=== PATIENT | female | born 1960 | race Two or more races ===

== ENCOUNTER → 2017-12-08 | Outpatient (CLI) | payer OTHER | END | disposition home or self-care (01) | LOC: RAD 11:00 | DX: M25.511 Pain in right shoulder (principal) ==

== ENCOUNTER 2018-06-27 13:37 | Emergency (ER) | payer OTHER ==
[~2018-06-27] VITALS: Ht 160 cm; Wt 66.7 kg
[2018-06-27] MEDS ORDERED: EXFORGE HCT 5-1 EAC1 (14:11)
== END 2018-06-27 17:27 | disposition home or self-care (01) ==
LOC: ER 13:37
DX: N39.0 Urinary tract infection, site not specified (principal); R10.12 Left upper quadrant pain

== ENCOUNTER 2018-07-01 08:31 | Outpatient (CLI) | payer OTHER ==
[~2018-07-01 08:31] MED LIST: EXFORGE HCT 5-1 EAC1
== END 2018-07-01 08:34 | disposition home or self-care (01) ==
LOC: SONOGRAMA 08:31 → MAMO-SONO 08:45
DX: R10.9 Unspecified abdominal pain (principal)

== ENCOUNTER 2019-01-26 07:55 | Outpatient (CLI) | payer OTHER | END 2019-01-26 08:14 | disposition home or self-care (01) | LOC: TOM 07:55 | DX: R10.2 Pelvic and perineal pain (principal) ==

== ENCOUNTER 2019-02-01 10:41 | Outpatient (CLI) | payer OTHER | END 2019-02-01 10:48 | disposition home or self-care (01) | LOC: MAMO-SONO 10:41 | DX: N63.10 Unspecified lump in the right breast, unspecified quadrant (principal); N63.20 Unspecified lump in the left breast, unspecified quadrant; Z12.31 Encounter for screening mammogram for malignant neoplasm of breast ==

== ENCOUNTER 2020-08-29 12:32 | Outpatient (CLI) | payer OTHER | END 2020-09-28 15:10 | disposition home or self-care (01) | LOC: MAMO-SONO 12:32 | PROVIDERS: ATTEND General Practice | DX: N63.12 Unspecified lump in the right breast, upper inner quadrant (principal); D25.9 Leiomyoma of uterus, unspecified ==

== ENCOUNTER 2021-09-19 07:34 | Outpatient (CLI) | payer OTHER | END 2021-09-19 07:59 | disposition home or self-care (01) | LOC: MAMO-SONO 07:34 | PROVIDERS: ATTEND General Practice | DX: N63.12 Unspecified lump in the right breast, upper inner quadrant (principal); I11.9 Hypertensive heart disease without heart failure; E03.9 Hypothyroidism, unspecified; D64.9 Anemia, unspecified; E78.00 Pure hypercholesterolemia, unspecified; D25.9 Leiomyoma of uterus, unspecified ==

== ENCOUNTER 2023-05-21 10:05 | Outpatient (CLI) | payer OTHER | END 2023-05-21 11:06 | disposition home or self-care (01) | LOC: MAMO-SONO 10:05 | PROVIDERS: ATTEND General Practice | DX: R10.2 Pelvic and perineal pain (principal); N63.0 Unspecified lump in unspecified breast; N60.11 Diffuse cystic mastopathy of right breast; N60.12 Diffuse cystic mastopathy of left breast; Z12.31 Encounter for screening mammogram for malignant neoplasm of breast ==